=== PATIENT | male | born 1970 | race Caucasian/White ===

== ENCOUNTER 2017-01-05 11:11 | Emergency (ER) | payer SELFPAY ==
[~2017-01-05] VITALS: Ht 177.8 cm; Wt 105.0 kg
[~2017-01-05 11:11] MED LIST: DIVA250ER PO; RISP1 PO; TEGR200T PO
[2017-01-05 11:13] VITALS: BP 144/97; PULSE 74; RESP 18; TEMP 98.1; O2SAT 97
--- NOTE | 2017-01-05 12:19 | PD ---
HPI Chief Complaint: Psychiatric Symptoms Time Seen by Provider: 12:10 Travel History International Travel<30 days: No Contact w/Intl Traveler<30days: No Traveled to known affect area: No History of Present Illness HPI 46-year-old male with history of bipolar disorder presents for psychiatric evaluation. He reports over the past few years has suffered from racing thoughts, depression, just not feeling right psychiatrically. Symptoms have been worsening which prompted his evaluation today. He denies any suicidal or homicidal ideation. He endorses marijuana use. Denies any other drug use. He reports that he was prescribed risperdal by Dr. Charles but it doesn't seem to help. He says that in the past when seeing Dr. Charles he was never completely honest with him in regards to his symptoms. He has no medical complaints at this time. [facility] Past Medical History Anxiety: Yes Depression: Yes Cancer: No (Per patient) Cardiovascular Problems: No (Per patient) Diabetes: No (Per patient) Diminished Hearing: Yes (Per pt.) Headaches: No (Per patient) Seizures: No (Per patient) Past Surgical History Ear Surgery: Yes (Multiple tubes in ears as a child; Hx ear infections. ) Social History Alcohol Use: Yes (Every other day betwen 4-12 beers per pt.) Tobacco Use: No (Briefly when younger.) Substance Use: No (MARIJUANA) Allergies-Medications (Allergen,Severity, Reaction): Coded Allergies: No Known Allergies (Unverified , 01/05/17) Per pt. Reported Meds & Prescriptions Reported Meds & Active Scripts Active Tegretol (Carbamazepine) 200 Mg Tab 200 Mg PO 1 BID Risperdal (Risperidone) 1 Mg Tab 1 Mg PO DIRECTED 1 twice a day 7 days, 1 AM 7 days then discontinue Depakote ER (Divalproex Sodium) 250 Mg Radha 250 Mg PO DAILY One daily 14 days then discontinue Review of Systems Except as stated in HPI: all other systems reviewed are Neg Physical Exam Narrative GENERAL: Well-developed well-nourished male in no acute distress SKIN: Warm and dry. HEAD: Atraumatic. Normocephalic. EYES: Pupils equal and round. No scleral icterus. No injection or drainage. ENT: No nasal bleeding or discharge. Mucous membranes pink and moist. NECK: Trachea midline. No JVD. CARDIOVASCULAR: Regular rate and rhythm. No murmur appreciated. RESPIRATORY: No accessory muscle use. Clear to auscultation. Breath sounds equal bilaterally. GASTROINTESTINAL: Abdomen soft, non-tender, nondistended. Hepatic and splenic margins not palpable. MUSCULOSKELETAL: No obvious deformities. No clubbing. No cyanosis. No edema. NEUROLOGICAL: Awake and alert. No obvious cranial nerve deficits. Motor grossly within normal limits. Normal speech. PSYCHIATRIC: Depressed. Insight and judgment appear normal. Data Data Last Documented VS Vital Signs Date Time Temp Pulse Resp B/P Pulse Ox O2 Delivery O2 Flow Rate FiO2 01/05/17 11:13 98.1 74 18 144/97 97 Orders Complete Blood Count With Diff (01/05/17 12:10) Comprehensive Metabolic Panel (01/05/17 12:10) Psych Screen (01/05/17 12:10) Drug Screen, Random Urine (01/05/17 12:10) Alcohol (Ethanol) (01/05/17 12:10) Salicylates (Aspirin) (01/05/17 12:10) Tylenol (Acetaminophen) (01/05/17 12:10) Labs Laboratory Tests Test 01/05/17 01/05/17 12:25 12:30 Urine Opiates Screen NEG Urine Barbiturates Screen NEG Urine Amphetamines Screen NEG Urine Benzodiazepines Screen NEG Urine Cocaine Screen NEG Urine Cannabinoids Screen POS White Blood Count 9.1 TH/MM3 Red Blood Count 5.38 MIL/MM3 Hemoglobin 16.0 GM/DL Hematocrit 46.0 % Mean Corpuscular Volume 85.4 FL Mean Corpuscular Hemoglobin 29.7 PG Mean Corpuscular Hemoglobin 34.8 % Concent Red Cell Distribution Width 13.6 % Platelet Count 161 TH/MM3 Mean Platelet Volume 8.3 FL Neutrophils (%) (Auto) 75.7 % Lymphocytes (%) (Auto) 18.6 % Monocytes (%) (Auto) 5.3 % Eosinophils (%) (Auto) 0.0 % Basophils (%) (Auto) 0.4 % Neutrophils # (Auto) 6.9 TH/MM3 Lymphocytes # (Auto) 1.7 TH/MM3 Monocytes # (Auto) 0.5 TH/MM3 Eosinophils # (Auto) 0.0 TH/MM3 Basophils # (Auto) 0.0 TH/MM3 CBC Comment DIFF FINAL Differential Comment Sodium Level 144 MEQ/L Potassium Level 3.9 MEQ/L Chloride Level 104 MEQ/L Carbon Dioxide Level 27.8 MEQ/L Anion Gap 12 MEQ/L Blood Urea Nitrogen 11 MG/DL Creatinine 1.02 MG/DL Estimat Glomerular Filtration 78 ML/MIN Rate Random Glucose 98 MG/DL Calcium Level 9.2 MG/DL Total Bilirubin 0.5 MG/DL Aspartate Amino Transf 9 U/L (AST/SGOT) Alanine Aminotransferase 20 U/L (ALT/SGPT) Alkaline Phosphatase 90 U/L Total Protein 7.2 GM/DL Albumin 4.3 GM/DL Salicylates Level 2.2 MG/DL Acetaminophen Level LESS THAN 2.0 MCG/ML Ethyl Alcohol Level LESS THAN 3 MG/DL MDM Medical Decision Making Medical Screen Exam Complete: Yes Emergency Medical Condition: Yes Medical Record Reviewed: Yes Interpretation(s) Positive for cannabinoids. Differential Diagnosis Bipolar disorder, major depressive disorder, acute psychosis, substance induced mood disorder Narrative Course 46-year-old male presents voluntarily requesting psychiatric evaluation. Mental health screening discussed with the patient. Psychiatric screen ordered. The patient is medically cleared. Diagnosis Primary Impression: bipolar disorder Luis Fernando Coello Jan 05, 2017 12:19
[2017-01-05 12:50] LABS: AUTOMATED NEUTROPHIL # 6.9 TH/MM3 (1.8-7.7); BASOPHIL % 0.4 % (0.0-2.0); HEMO FLAGS DIFF FINAL; LYMPH % 18.6 % (9.0-44.0); LYMPHOCYTE # 1.7 TH/MM3 (1.0-4.8); MEAN CELL VOLUME 85.4 FL (80.0-100.0); MEAN CORPUSCULAR HEMOGLOBIN 29.7 PG (27.0-34.0); MEAN CORPUSCULAR HGB CONC 34.8 % (32.0-36.0); MONO % 5.3 % (0.0-8.0); NEUT % 75.7 % (16.0-70.0); PLATELET COUNT 161 TH/MM3 (150-450); RED BLOOD COUNT 5.38 MIL/MM3 (4.50-5.90); RED CELL DISTRIBUTION WIDTH 13.6 % (11.6-17.2); WHITE BLOOD COUNT 9.1 TH/MM3 (4.0-11.0)
[2017-01-05 12:58] LABS: AMPHETAMINE, URINE NEG (NEG); BARBITURATES, URINE NEG (NEG); COCAINE, URINE NEG (NEG)
[2017-01-05 13:07] LABS: ALT (GPT) 20 U/L (12-78); ANION GAP 12 MEQ/L (5-15); AST (GOT) 9 U/L (15-37); BICARBONATE 27.8 MEQ/L (21.0-32.0); BLOOD UREA NITROGEN 11 MG/DL (7-18); CHLORIDE 104 MEQ/L (98-107); GLOMERULAR FILTRATION RATE 78 ML/MIN (>89); POTASSIUM 3.9 MEQ/L (3.5-5.1); SODIUM (NA) 144 MEQ/L (136-145)
[2017-01-05 13:10] LABS: ACETAMINOPHEN LESS THAN 2.0 MCG/ML (10.0-30.0); ALKALINE PHOSPHATASE 90 U/L (45-117); TOTAL BILIRUBIN ADULT 0.5 MG/DL (0.2-1.0)
[2017-01-05 14:42] VITALS: BP 128/74; PULSE 76; RESP 15; TEMP 98.7; O2SAT 98
[2017-01-05 15:27] VITALS: BP 133/91; PULSE 75; RESP 18; TEMP 98.6; O2SAT 99
[2017-01-05 17:42] VITALS: BP 110/70; PULSE 86; RESP 18; O2SAT 98
[2017-01-05 22:10] VITALS: BP 135/75; PULSE 64; RESP 19; O2SAT 98
[2017-01-06 02:12] VITALS: BP 105/66; PULSE 84; RESP 19; O2SAT 98
[2017-01-06 06:20] VITALS: BP 121/77; PULSE 63; RESP 19; O2SAT 95
[2017-01-06 10:52] VITALS: BP 127/95; PULSE 72; RESP 18; TEMP 98
== END 2017-01-06 13:14 ==
LOC: NEPE 11:11 → NEPJ 01-06 13:14
DX: F31.9 Bipolar disorder, unspecified (principal); F12.90 Cannabis use, unspecified, uncomplicated; F10.10 Alcohol abuse, uncomplicated
CPT/HCPCS: 80053; 80307; 85025; 99285